=== PATIENT | male | born 1980 | race African-American/Black ===

== ENCOUNTER 2022-02-05 06:24 | Emergency (ER) | payer SELFPAY ==
[2022-02-05] MEDS ORDERED: TETRACAINE 0.5% OPHTH SOLN 4 ML BTL (SINGLE DOSE ONLY) ONE (06:35)
[2022-02-05] MEDS ORDERED: FLUORESCEIN (FLUOR-I-STRIPS) 1 MG STRP ONE (06:35)
[2022-02-05] MEDS ORDERED: BSS 15 ML ONE (06:36)
--- NOTE | 2022-02-05 06:53 | ED EENT ---
History of Present Illness General Chief Complaint: Eye Problems Stated Complaint: RIGHT EYE CATARACT FELL OUT Nursing Triage Note: TO ED VIA POV AND AMBULATORY TO ROOM 5 WITH C/O PAIN TO RIGHT EYE STATING "IT FEELS LIKE A ROCK IS STUCK IN IT". PT STATES HE THINKS HIS CATARACT FELL OUT. Source: patient, spouse Exam Limitations: no limitations (SHELLEY DONATO) History of Present Illness Date Seen by Provider: Feb 05, 2022 Time Seen by Provider: 06:48 Initial Comments Patient is a 41 y/o M who presents to ER with his with CC of right eye pain onset 30 minutes ago. Patient reports he awoke from sleep today and found his right eye to be painful and irritated. States he feels like there is a "rock under his top eyelid". He tried washing his face which did not help. His also tried looking in his eye to see if she could see anything. He rates his discomfort as 9/10. Eye is actively tearing. Denies any vision changes. Patient does detailing for work. Timing/Duration: other ([employer]) Severity: mild Location: eye (R) Associated Symptoms: denies symptoms (SHELLEY DONATO) Timing/Duration: other ([employer]) Prearrival Treatment: no prearrival treatment (SYLWIA MIRANDA MD) Allergies and Home Medications Allergies Coded Allergies: No Known Drug Allergies (Unverified , 02/05/22) Patient Home Medication List Home Medication List Reviewed: Yes (SHELLEY DONATO) Home Medication List Reviewed: Yes (SYLWIA MIRANDA MD) Review of Systems Review of Systems Eyes: Denies Blurred Vision; Foreign Body Sensation (right eye ); Denies Contact Lenses, Denies Glasses (SHELLEY DONATO) Constitutional: see HPI Respiratory: no symptoms reported Cardiovascular: no symptoms reported Gastrointestinal: no symptoms reported Skin: no symptoms reported Neurological: No Symptoms Reported (SYLWIA MIRANDA MD) All Other Systems Reviewed Negative Unless Noted: Yes (SYLWIA MIRANDA MD) Past Lhvacfx-Mjwscz-Losm[facility] Hx Immunizations Up To Date Influenza Vaccine Up-to-Date: No; Not Current (SHELLEY DONATO) Visual Acuity : Eye Location: Right Vision Acuity Degree: 20/25 (SHELLEY DONATO) Physical Exam Vital Signs Vital Signs - First Documented 02/05/22 06:30 Temp 36.2 Pulse 65 Resp 16 B/P (MAP) 117/94 (102) Pulse Ox 98 O2 Delivery Room Air (SYLWIA MIRANDA MD) Height, Weight, BMI Height: '" Weight: lbs. oz. kg; BMI Method: Eyes: right eye foreign body (eyelash under the top eyelid ); bilateral eye normal inspection, bilateral eye PERRL, bilateral eye EOMI (SUBBARAO,SHELLEY) General Appearance: WD/WN, no apparent distress Eyes: right eye conjunctival inflammation (superior lateral sclerae), right eye foreign body (eye lash noted under right eye lid on lid eversion) Ears: bilateral ear auricle normal Nose: normal inspection Neck: normal inspection Respiratory: no respiratory distress, no accessory muscle use Neurologic/Psychiatric: alert, normal mood/affect, oriented x 3 Skin: normal color, warm/dry (SYLWIA MIRANDA MD) Progress/Results/Core Measures Results/Orders My Orders Orders - SYLWIA MIRANDA MD Fluorescein Strips (Lmkyg-L-Ckstrw) (02/05/22 06:35) Tetracaine 0.5% Ophth Radha Sdv (Tetracai (02/05/22 06:35) Balanced Salt Irrigation Soln (Bss Irrig (02/05/22 06:36) (SYLWIA MIRANDA MD) Medications Given in ED (SYLWIA MIRANDA MD) Vital Signs/I&O (SYLWIA MIRANDA MD) Blood Pressure Mean: 102 Progress Progress Note : Time: 06:57 Progress Note Patient seen and examined by me 41-year-old male woke up with a sensation of foreign body under his right eyelid. 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 Exam remarkable for some slight scleral injection right eye lateral sclera at about the 8 or 9 o'clock position. Both upper and lower lids were everted, notable for eyelash caught under the right upper lid. Fluorescein stain used to evaluate for corneal abrasion, under black light no obvious abrasions were noted. Pupils equal round and reactive, extraocular muscles are intact. He did obtain relief with proparacaine to the right eye. Visual acuity evaluated, 20/25 right eye Patient has no clinical indication for antibiotics at this time. I believe his symptoms are related to the eyelash caught under the upper lid. No excessive tearing or purulence noted. I did advise him if he develops any increasing eye redness, pain, swelling or drainage that he needed to come back to the emergency room for reevaluation. Patient verbalized understanding all questions are sought and answered (SYLWIA MIRANDA MD) Departure Impression Primary Impression: Foreign body in conjunctival sac Qualified Codes: T15.11XA - Foreign body in conjunctival sac, right eye, initial encounter Disposition: HOME, SELF-CARE Condition: Improved Departure-Patient Inst. Decision time for Depature: 06:59 (SYLWIA MIRANDA MD) Referrals: [facility] [place] VERONICA,LOCAL PHYSICIAN (PCP) Primary Care Physician Patient Instructions: Foreign Body in Eye ED Add. Discharge Instructions: Use over the counter "Artificial Tears" to help keep your eye moist as needed. This will also help discomfort. You can take over the counter ibuprofen every 6 hours for any other eye discomfort. If your eye starts to become red, swollen, more painful or you have yellow drainage or crusting from the eye please follow up with [facility] or come back to the Emergency Department for re-evaluation. Verification and Attestation of Medical Student E/M Service A medical student performed and documented this service in my presence. I reviewed and verified all information documented by the medical student and made modifications to such information, when appropriate. I personally performed the physical exam and medical decision making. Sylwia Miranda, Feb 06, 2022,08:45 (SYLWIA MIRANDA MD) SHELLEY DONATO Feb 05, 2022 06:53 SYLWIA MIRANDA MD Feb 05, 2022 07:01
[2022-02-05 07:13] VITALS: BP 117/94
== END 2022-02-05 07:13 | disposition home or self-care (01) ==
LOC: ER 06:26
DX: T15.11XA Foreign body in conjunctival sac, right eye, initial encounter (principal); Z28.310 Unvaccinated for COVID-19; X58.XXXA Exposure to other specified factors, initial encounter
CPT/HCPCS: 99282